=== PATIENT | female | born 1985 | race Caucasian/White ===

== ENCOUNTER 2019-04-04 15:11 | Emergency (ER) | payer OTHER, SELFPAY ==
[2019-04-04 15:34] VITALS: BP 134/78; PULSE 91; RESP 22; TEMP 37.3; O2SAT 99
[2019-04-04 15:55] LABS: Add Manual Diff / Slide Review NO; Basophils Absolute Auto 0 /uL (0-100); Basophils Percent Auto 0.3 % (0-2); Eosinophils Absolute Auto 0 /uL (0-450); Eosinophils Percent Auto 0.2 % (2-4); Hematocrit 42.6 % (36-46); Hemoglobin 14.2 g/dL (12.0-16.0); Lymphocytes Absolute Auto 2100 /uL (1100-4500); Lymphocytes Percent Auto 31.2 % (25-40); Mean Corpuscular HGB Conc 33.4 % (30-36); Mean Corpuscular Hemoglobin 28.9 PG (26-34); Mean Corpuscular Volume 86.6 fL (80-100); Monocytes Absolute Auto 400 /uL (0-900); Monocytes Percent Auto 6.2 % (3-14); Neutrophils Absolute Auto 4100 /uL (1500-7000); Neutrophils Percent Auto 62.1 % (50-75); Platelet Count 232 X10^3/uL (150-400); Red Blood Cell Count 4.91 X10^6/uL (4.0-5.2); Red Cell Distribution Width 12.8 % (11.6-14.8); White Blood Cell Count 6.6 X10^3/uL (4.5-11.0)
[2019-04-04 16:04] LABS: Acetaminophen < 10 ug/mL (10-30); Alanine Aminotransferase 21 IU/L (9-52); Albumin 4.7 g/dL (3.5-5.0); Albumin Globulin Ratio 1.6 (1.0-2.8); Alkaline Phosphatase 64 U/L (38-126); Aspartate Aminotransferase 22 IU/L (14-36); BUN Creatinine Ratio 15.7 (6-22); Bilirubin Total 0.6 mg/dL (0.2-1.3); Blood Urea Nitrogen 11 mg/dL (7-17); Calcium 9.3 mg/dL (8.4-10.2); Carbon Dioxide 25 mmol/L (22-32); Chloride 105 mmol/L (98-107); Estimated Glomerular Filt Rate > 60.0 mL/min (>60); Ethanol (ETOH) < 10 mg/dL; Glucose 82 mg/dL (70-100); HEMOLYSIS < 15 (0-50); Potassium 3.8 mmol/L (3.4-5.1); Salicylate < 1.0 mg/dL (<20); Sodium 141 mmol/L (137-145); Total Protein 7.7 g/dL (6.3-8.2)
[2019-04-04 16:27] LABS: Urine Amphetamines Negative (Negative); Urine Barbiturates Negative (Negative); Urine Benzodiazepines Negative (Negative); Urine Cocaine Negative (Negative); Urine MDMA Negative (Negative); Urine Methadone Negative (Negative); Urine Methamphetamines Negative (Negative); Urine Morphine/Opi cutoff 2000 Negative (Negative); Urine Oxycodone Negative (Negative); Urine Phencyclidine Negative (Negative); Urine Tetrahydrocannabinol Negative (Negative); Urine Tricyclic Antidepressant Negative (Negative)
[2019-04-04] MEDS: LORazepam 0.5 MG TABLET 1 MG PO ×2 (16:28→20:40)
[2019-04-04 16:47] VITALS: BP 108/67; PULSE 83; RESP 17; O2SAT 99
[2019-04-04 16:53] LABS: Thyroid Stimulating Hormone 1.45 uIU/mL (0.47-4.68)
--- NOTE | 2019-04-04 17:08 | ED.PSYCH ---
HPI - Psych <KYA Armstrong-BC - Last Filed: 04/04/19 21:12> General Chief Complaint: Psychiatric Symptoms Stated Complaint: suicidal ideation with a plan Time Seen by Provider: 04/04/19 15:38 Source: patient Mode of arrival: ambulatory Limitations: no limitations History of Present Illness HPI Narrative: The patient is a 34-year-old female who presents with her counselor with a chief complaint of suicidal ideations. She states that she has had depression and suicidal ideations for the past 2 months, but lately she has become ?dark? and increasingly suicidal. She has a plan to jump off of [place]. She has other plans to stop eating, and ?waste away.She states that she has been a difficult marriage, and her ?won't let me divorce him.She denies any homicidal ideations. She is willing to contract for safety in the emergency department. She denies any hallucinations, drugs alcohol marijuana or illicits substance use. She states she is unable to sleep, she has decreased appetite, and she feels hopeless. She states she does not have hope for her future. She states that ?it is all too much.? She called her counselor this morning, who is Maine Wagner from [facility]. She states that she is unable to wait for counseling appointment next week, and needed help immediately. The patient or cyst several active plans, and is very teary on interview. Related Data Home Medications Medication Instructions Recorded Confirmed No Known Home Medications 04/04/19 04/04/19 Allergies Allergy/AdvReac Type Severity Reaction Status Date / Time alcohol Allergy Verified 04/04/19 15:25 ketorolac [From Toradol] Allergy Hives Verified 04/04/19 15:25 Review of Systems <KYA Armstrong-BC - Last Filed: 04/04/19 21:12> Review of Systems GENERAL: Denies chills, fatigue, malaise, fever, sweats. HEENT: Denies sinus pain, ear pain, sore throat, difficulty swallowing, dizziness. RESPIRATORY: Denies dyspnea, cough, wheezing, hemoptysis, sputum. CARDIOVASCULAR: Denies chest pain, palpitations, orthopnea, edema, GASTROINTESTINAL: Denies nausea, vomiting, abdominal pain, diarrhea, constipation, melena. : Denies dysuria, frequency, incontinence, hematuria, urinary retention. MUSCULOSKELETAL: denies weakness, joint pain, or bony pain SKIN: Denies rash, skin lesions, or other NEUROLOGIC: Denies weakness, headache, numbness, change in speech, confusion, seizures, incoordination. PSYCHIATRIC: See HPI 12 point review of systems is negative except for those stated above PFSH <DARLIN Armstrong - Last Filed: 04/04/19 21:12> Social History Smoking Status: Never smoker Social History Smoking Status: Never smoker Exam <DARLIN Armstrong - Last Filed: 04/04/19 21:12> Narrative Exam Narrative: GENERAL: This is a well-nourished, well-developed patient, anxious and crying HEAD: Atraumatic. Normocephalic. No temporal or scalp tenderness. EYES: Pupils equal round and reactive. Extraocular motions intact. No scleral icterus. No injection or drainage. ENT: Nose without bleeding, purulent drainage or septal hematoma. Throat without erythema, tonsillar hypertrophy or exudate. Uvula midline. Airway patent. NECK: Trachea midline. No JVD or lymphadenopathy. Supple, nontender, no meningeal signs. CARDIOVASCULAR: Regular rate and rhythm RESPIRATORY: Clear to auscultation. Breath sounds equal bilaterally. No wheezes, rales, or rhonchi. No cough. No increased respiratory effort. No accessory muscle use. GASTROINTESTINAL: Abdomen soft, non-tender, nondistended. No hepato-splenomegaly, or palpable masses. No guarding. EXTREMITIES: No clubbing, cyanosis, or edema. No joint tenderness, effusion, or edema noted. BACK: Nontender without deformity or crepitance. No flank tenderness. NEURO: AOx3. SKIN: No rash or erythema. psych: Denies any homicidal ideations, denies any homicidal plan, endorses suicidal ideations with suicidal plan. Crying, anxious. Initial Vital Signs Initial Vital Signs: Vital Signs Temperature 99.1 F 04/04/19 15:34 Pulse Rate 91 H 04/04/19 15:34 Respiratory Rate 22 04/04/19 15:34 Blood Pressure 134/78 04/04/19 15:34 Pulse Oximetry 99 04/04/19 15:34 <Lavon Benitez DO - Last Filed: 04/05/19 06:15> Initial Vital Signs Initial Vital Signs: Vital Signs Temperature 99.1 F 04/04/19 15:34 Pulse Rate 91 H 04/04/19 15:34 Respiratory Rate 22 04/04/19 15:34 Blood Pressure 134/78 04/04/19 15:34 Pulse Oximetry 99 04/04/19 15:34 Course <DARLIN Armstrong - Last Filed: 04/04/19 21:12> Orders Ordered: ED Orders 04/04/19 21:30 Consult to Heat Transfer Technician Stat Discontinued Medications Lorazepam (Ativan) 1 mg PO NOW ONE Stop: 04/04/19 16:19 Last Admin: 04/04/19 16:28 Dose: 1 mg Lorazepam (Ativan) 1 mg PO NOW ONE Stop: 04/04/19 20:17 Last Admin: 04/04/19 20:40 Dose: 1 mg Vital Signs - 8 hr 04/04/19 22:59 04/05/19 02:25 04/05/19 04:20 Temperature 98.1 F Pulse Rate 66 70 75 Respiratory Rate 16 16 17 Blood Pressure [Right Arm] 89/60 L 87/58 L Pulse Oximetry 95 <Lavon Benitez DO - Last Filed: 04/05/19 06:15> Orders Ordered: ED Orders 04/04/19 21:30 Consult to Heat Transfer Technician Stat Discontinued Medications Lorazepam (Ativan) 1 mg PO NOW ONE Stop: 04/04/19 16:19 Last Admin: 04/04/19 16:28 Dose: 1 mg Lorazepam (Ativan) 1 mg PO NOW ONE Stop: 04/04/19 20:17 Last Admin: 04/04/19 20:40 Dose: 1 mg Vital Signs - 8 hr 04/04/19 22:59 04/05/19 02:25 04/05/19 04:20 Temperature 98.1 F Pulse Rate 66 70 75 Respiratory Rate 16 16 17 Blood Pressure [Right Arm] 89/60 L 87/58 L Pulse Oximetry 95 MDM - Psych <DARLIN Armstrong - Last Filed: 04/04/19 21:12> Lab Data Result diagrams: 04/04/19 15:47 04/04/19 15:47 Lab Results 04/04/19 04/04/19 04/04/19 Range/Units 15:47 15:47 15:47 WBC 6.6 (4.5-11.0) X10^3/uL RBC 4.91 (4.0-5.2) X10^6/uL Hgb 14.2 (12.0-16.0) g/dL Hct 42.6 (36-46) % MCV 86.6 (80-100) fL MCH 28.9 (26-34) PG MCHC 33.4 (30-36) % RDW 12.8 (11.6-14.8) % Plt Count 232 (150-400) X10^3/uL Neut % (Auto) 62.1 (50-75) % Lymph % (Auto) 31.2 (25-40) % Dewitt % (Auto) 6.2 (3-14) % Eos % (Auto) 0.2 L (2-4) % Baso % (Auto) 0.3 (0-2) % Neut # (Auto) 4100 (4326-0258) /uL Lymph # (Auto) 2100 (3349-1129) /uL Dewitt # (Auto) 400 (0-900) /uL Eos # (Auto) 0 (0-450) /uL Baso # (Auto) 0 (0-100) /uL Sodium 141 (137-145) mmol/L Potassium 3.8 (3.4-5.1) mmol/L Chloride 105 (98-107) mmol/L Carbon Dioxide 25 (22-32) mmol/L BUN 11 (7-17) mg/dL Creatinine 0.70 (0.52-1.04) mg/dL Estimated GFR > 60.0 (>60) mL/min BUN/Creatinine Ratio 15.7 (6-22) Glucose 82 (70-100) mg/dL Calcium 9.3 (8.4-10.2) mg/dL Total Bilirubin 0.6 (0.2-1.3) mg/dL AST 22 (14-36) IU/L ALT 21 (9-52) IU/L Alkaline Phosphatase 64 (38-126) U/L Total Protein 7.7 (6.3-8.2) g/dL Albumin 4.7 (3.5-5.0) g/dL Globulin 3.0 (1.7-4.1) g/dL Albumin/Globulin Ratio 1.6 (1.0-2.8) TSH 1.45 (0.47-4.68) uIU/mL Salicylates < 1.0 (<20) mg/dL Urine Opiates Screen (Negative) Ur Oxycodone Screen (Negative) Urine Methadone Screen (Negative) Acetaminophen < 10 L (10-30) ug/mL Ur Barbiturates Screen (Negative) U Tricyclic Antidepress (Negative) Ur Phencyclidine Scrn (Negative) Ur Amphetamines Screen (Negative) U Methamphetamines Scrn (Negative) Ur MDMA Scrn (Ecstasy) (Negative) U Benzodiazepines Scrn (Negative) Urine Cocaine Screen (Negative) U Marijuana (THC) Screen (Negative) Ethyl Alcohol < 10 mg/dL 04/04/19 Range/Units 16:05 WBC (4.5-11.0) X10^3/uL RBC (4.0-5.2) X10^6/uL Hgb (12.0-16.0) g/dL Hct (36-46) % MCV (80-100) fL MCH (26-34) PG MCHC (30-36) % RDW (11.6-14.8) % Plt Count (150-400) X10^3/uL Neut % (Auto) (50-75) % Lymph % (Auto) (25-40) % Dewitt % (Auto) (3-14) % Eos % (Auto) (2-4) % Baso % (Auto) (0-2) % Neut # (Auto) (5938-2611) /uL Lymph # (Auto) (6426-8122) /uL Dewitt # (Auto) (0-900) /uL Eos # (Auto) (0-450) /uL Baso # (Auto) (0-100) /uL Sodium (137-145) mmol/L Potassium (3.4-5.1) mmol/L Chloride (98-107) mmol/L Carbon Dioxide (22-32) mmol/L BUN (7-17) mg/dL Creatinine (0.52-1.04) mg/dL Estimated GFR (>60) mL/min BUN/Creatinine Ratio (6-22) Glucose (70-100) mg/dL Calcium (8.4-10.2) mg/dL Total Bilirubin (0.2-1.3) mg/dL AST (14-36) IU/L ALT (9-52) IU/L Alkaline Phosphatase (38-126) U/L Total Protein (6.3-8.2) g/dL Albumin (3.5-5.0) g/dL Globulin (1.7-4.1) g/dL Albumin/Globulin Ratio (1.0-2.8) TSH (0.47-4.68) uIU/mL Salicylates (<20) mg/dL Urine Opiates Screen Negative (Negative) Ur Oxycodone Screen Negative (Negative) Urine Methadone Screen Negative (Negative) Acetaminophen (10-30) ug/mL Ur Barbiturates Screen Negative (Negative) U Tricyclic Antidepress Negative (Negative) Ur Phencyclidine Scrn Negative (Negative) Ur Amphetamines Screen Negative (Negative) U Methamphetamines Scrn Negative (Negative) Ur MDMA Scrn (Ecstasy) Negative (Negative) U Benzodiazepines Scrn Negative (Negative) Urine Cocaine Screen Negative (Negative) U Marijuana (THC) Screen Negative (Negative) Ethyl Alcohol mg/dL Urine Dip Bedside Urine Glucose Negative Bedside Urine Bilirubin - Negative Bedside Urine Ketone - Negative Urine Specific Fraser 1.015 Bedside Urine Occult Blood - Negative Bedside Urine pH 6.0 Bedside Urine Protein - Negative Bedside Urine Urobilinogen - Negative Bedside Urine Nitrite - Negative Bedside Urine Leukocytes - Negative Esterase MDM Narrative Medical decision making narrative: The patient is a 34-year-old female who presents with suicidal ideations and plan. Given her presentation, I am concerned about the fact that she has a plan, and ability to carry out the plan. She is under great emotional distress at this point given her trouble marriage, the recent her pet, and increased stress at home. Her hopelessness, decreased appetite and inability to sleep are concerning. The she was placed under suicidal precautions while psychiatric clearance was obtained. She was given Ativan in the emergency department to help decrease her anxiety. Her counselor remained at her bedside. The patient does want to help, making her voluntary. Voluntary bed search was commenced. Unfortunately [facility] would not accept the patient due to her insurance. There are no psychiatric female beds at [facility] in [place], and paperwork was faxed to [facility] at 6:00 p.m.. At 9:00 p.m., the patient has paperwork with soon to be reviewed. Also no [facility] at [place], [facility], or [facility]. Patient signed out to Dr Benitez at 21:15, waiting to hear back from [facility]. Patient has been on suicide precautions, with sitter, cooperative and room. Ativan ordered for anxiety to help sleep. <Lavon Benitez, DO - Last Filed: 04/05/19 06:15> Lab Data Lab Results 04/04/19 04/04/19 04/04/19 Range/Units 15:47 15:47 15:47 WBC 6.6 (4.5-11.0) X10^3/uL RBC 4.91 (4.0-5.2) X10^6/uL Hgb 14.2 (12.0-16.0) g/dL Hct 42.6 (36-46) % MCV 86.6 (80-100) fL MCH 28.9 (26-34) PG MCHC 33.4 (30-36) % RDW 12.8 (11.6-14.8) % Plt Count 232 (150-400) X10^3/uL Neut % (Auto) 62.1 (50-75) % Lymph % (Auto) 31.2 (25-40) % Dewitt % (Auto) 6.2 (3-14) % Eos % (Auto) 0.2 L (2-4) % Baso % (Auto) 0.3 (0-2) % Neut # (Auto) 4100 (5057-0386) /uL Lymph # (Auto) 2100 (1394-0322) /uL Dewitt # (Auto) 400 (0-900) /uL Eos # (Auto) 0 (0-450) /uL Baso # (Auto) 0 (0-100) /uL Sodium 141 (137-145) mmol/L Potassium 3.8 (3.4-5.1) mmol/L Chloride 105 (98-107) mmol/L Carbon Dioxide 25 (22-32) mmol/L BUN 11 (7-17) mg/dL Creatinine 0.70 (0.52-1.04) mg/dL Estimated GFR > 60.0 (>60) mL/min BUN/Creatinine Ratio 15.7 (6-22) Glucose 82 (70-100) mg/dL Calcium 9.3 (8.4-10.2) mg/dL Total Bilirubin 0.6 (0.2-1.3) mg/dL AST 22 (14-36) IU/L ALT 21 (9-52) IU/L Alkaline Phosphatase 64 (38-126) U/L Total Protein 7.7 (6.3-8.2) g/dL Albumin 4.7 (3.5-5.0) g/dL Globulin 3.0 (1.7-4.1) g/dL Albumin/Globulin Ratio 1.6 (1.0-2.8) TSH 1.45 (0.47-4.68) uIU/mL Salicylates < 1.0 (<20) mg/dL Urine Opiates Screen (Negative) Ur Oxycodone Screen (Negative) Urine Methadone Screen (Negative) Acetaminophen < 10 L (10-30) ug/mL Ur Barbiturates Screen (Negative) U Tricyclic Antidepress (Negative) Ur Phencyclidine Scrn (Negative) Ur Amphetamines Screen (Negative) U Methamphetamines Scrn (Negative) Ur MDMA Scrn (Ecstasy) (Negative) U Benzodiazepines Scrn (Negative) Urine Cocaine Screen (Negative) U Marijuana (THC) Screen (Negative) Ethyl Alcohol < 10 mg/dL 04/04/19 Range/Units 16:05 WBC (4.5-11.0) X10^3/uL RBC (4.0-5.2) X10^6/uL Hgb (12.0-16.0) g/dL Hct (36-46) % MCV (80-100) fL MCH (26-34) PG MCHC (30-36) % RDW (11.6-14.8) % Plt Count (150-400) X10^3/uL Neut % (Auto) (50-75) % Lymph % (Auto) (25-40) % Dewitt % (Auto) (3-14) % Eos % (Auto) (2-4) % Baso % (Auto) (0-2) % Neut # (Auto) (4650-4343) /uL Lymph # (Auto) (9889-0547) /uL Dewitt # (Auto) (0-900) /uL Eos # (Auto) (0-450) /uL Baso # (Auto) (0-100) /uL Sodium (137-145) mmol/L Potassium (3.4-5.1) mmol/L Chloride (98-107) mmol/L Carbon Dioxide (22-32) mmol/L BUN (7-17) mg/dL Creatinine (0.52-1.04) mg/dL Estimated GFR (>60) mL/min BUN/Creatinine Ratio (6-22) Glucose (70-100) mg/dL Calcium (8.4-10.2) mg/dL Total Bilirubin (0.2-1.3) mg/dL AST (14-36) IU/L ALT (9-52) IU/L Alkaline Phosphatase (38-126) U/L Total Protein (6.3-8.2) g/dL Albumin (3.5-5.0) g/dL Globulin (1.7-4.1) g/dL Albumin/Globulin Ratio (1.0-2.8) TSH (0.47-4.68) uIU/mL Salicylates (<20) mg/dL Urine Opiates Screen Negative (Negative) Ur Oxycodone Screen Negative (Negative) Urine Methadone Screen Negative (Negative) Acetaminophen (10-30) ug/mL Ur Barbiturates Screen Negative (Negative) U Tricyclic Antidepress Negative (Negative) Ur Phencyclidine Scrn Negative (Negative) Ur Amphetamines Screen Negative (Negative) U Methamphetamines Scrn Negative (Negative) Ur MDMA Scrn (Ecstasy) Negative (Negative) U Benzodiazepines Scrn Negative (Negative) Urine Cocaine Screen Negative (Negative) U Marijuana (THC) Screen Negative (Negative) Ethyl Alcohol mg/dL Urine Dip Bedside Urine Glucose Negative Bedside Urine Bilirubin - Negative Bedside Urine Ketone - Negative Urine Specific Fraser 1.015 Bedside Urine Occult Blood - Negative Bedside Urine pH 6.0 Bedside Urine Protein - Negative Bedside Urine Urobilinogen - Negative Bedside Urine Nitrite - Negative Bedside Urine Leukocytes - Negative Esterase MDM Narrative Medical decision making narrative: Received turned over from the initial day provider reviewed patient's history and physical. Patient has been accepted by Dr. Bridges at [facility] however they did require a 3 day pre authorization from the insurance before she could be transported. A social work consult has been placed to help with this. Patient has been stable overnight. She has remain medically cleared. She has been voluntary. Care turned over to day provider change of shift to disposition. Discharge Plan Departure Prescriptions: No Action No Known Home Medications RF: 0
--- NOTE | 2019-04-04 17:13 | ED_ITS ---
HPI - Psych <KYA Armstrong-BC - Last Filed: 04/04/19 21:12> General Chief Complaint: Psychiatric Symptoms Stated Complaint: suicidal ideation with a plan Time Seen by Provider: 04/04/19 15:38 Source: patient Mode of arrival: ambulatory Limitations: no limitations History of Present Illness HPI Narrative: The patient is a 34-year-old female who presents with her counselor with a chief complaint of suicidal ideations. She states that she has had depression and suicidal ideations for the past 2 months, but lately she has become ?dark? and increasingly suicidal. She has a plan to jump [place] of [place]. She has other plans to stop eating, and ?waste away.She states that she has been a difficult marriage, and her ?won't let me divorce him.She denies any homicidal ideations. She is willing to contract for safety in the emergency department. She denies any hallucinations, drugs alcohol marijuana or illicits substance use. She states she is unable to sleep, she has decreased appetite, and she feels hopeless. She states she does not have hope for her future. She states that ?it is all too much.? She called her counselor this morning, who is Maine Wagner from [facility]. She states that she is unable to wait for counseling appointment next week, and needed help immediately. The patient or cyst several active plans, and is very teary on interview. Related Data Home Medications Medication Instructions Recorded Confirmed No Known Home Medications 04/04/19 04/04/19 Allergies Allergy/AdvReac Type Severity Reaction Status Date / Time alcohol Allergy Verified 04/04/19 15:25 ketorolac [From Toradol] Allergy Hives Verified 04/04/19 15:25 Review of Systems <KYA Armstrong-BC - Last Filed: 04/04/19 21:12> Review of Systems GENERAL: Denies chills, fatigue, malaise, fever, sweats. HEENT: Denies sinus pain, ear pain, sore throat, difficulty swallowing, dizziness. RESPIRATORY: Denies dyspnea, cough, wheezing, hemoptysis, sputum. CARDIOVASCULAR: Denies chest pain, palpitations, orthopnea, edema, GASTROINTESTINAL: Denies nausea, vomiting, abdominal pain, diarrhea, constipation, melena. : Denies dysuria, frequency, incontinence, hematuria, urinary retention. MUSCULOSKELETAL: denies weakness, joint pain, or bony pain SKIN: Denies rash, skin lesions, or other NEUROLOGIC: Denies weakness, headache, numbness, change in speech, confusion, seizures, incoordination. PSYCHIATRIC: See HPI 12 point review of systems is negative except for those stated above PFSH <DARLIN Armstrong - Last Filed: 04/04/19 21:12> Social History Smoking Status: Never smoker Social History Smoking Status: Never smoker Exam <DARLIN Armstrong - Last Filed: 04/04/19 21:12> Narrative Exam Narrative: GENERAL: This is a well-nourished, well-developed patient, anxious and crying HEAD: Atraumatic. Normocephalic. No temporal or scalp tenderness. EYES: Pupils equal round and reactive. Extraocular motions intact. No scleral icterus. No injection or drainage. ENT: Nose without bleeding, purulent drainage or septal hematoma. Throat without erythema, tonsillar hypertrophy or exudate. Uvula midline. Airway patent. NECK: Trachea midline. No JVD or lymphadenopathy. Supple, nontender, no meningeal signs. CARDIOVASCULAR: Regular rate and rhythm RESPIRATORY: Clear to auscultation. Breath sounds equal bilaterally. No wheezes, rales, or rhonchi. No cough. No increased respiratory effort. No accessory muscle use. GASTROINTESTINAL: Abdomen soft, non-tender, nondistended. No hepato- splenomegaly, or palpable masses. No guarding. EXTREMITIES: No clubbing, cyanosis, or edema. No joint tenderness, effusion, or edema noted. BACK: Nontender without deformity or crepitance. No flank tenderness. NEURO: AOx3. SKIN: No rash or erythema. psych: Denies any homicidal ideations, denies any homicidal plan, endorses suicidal ideations with suicidal plan. Crying, anxious. Initial Vital Signs Initial Vital Signs: Vital Signs Temperature 99.1 F 04/04/19 15:34 Pulse Rate 91 H 04/04/19 15:34 Respiratory Rate 22 04/04/19 15:34 Blood Pressure 134/78 04/04/19 15:34 Pulse Oximetry 99 04/04/19 15:34 <Lavon Benitez DO - Last Filed: 04/05/19 06:15> Initial Vital Signs Initial Vital Signs: Vital Signs Temperature 99.1 F 04/04/19 15:34 Pulse Rate 91 H 04/04/19 15:34 Respiratory Rate 22 04/04/19 15:34 Blood Pressure 134/78 04/04/19 15:34 Pulse Oximetry 99 04/04/19 15:34 Course <DARLIN Armstrong - Last Filed: 04/04/19 21:12> Orders Ordered: ED Orders 04/04/19 21:30 Consult to Director Information Stat Discontinued Medications Lorazepam (Ativan) 1 mg PO NOW ONE Stop: 04/04/19 16:19 Last Admin: 04/04/19 16:28 Dose: 1 mg Lorazepam (Ativan) 1 mg PO NOW ONE Stop: 04/04/19 20:17 Last Admin: 04/04/19 20:40 Dose: 1 mg Vital Signs - 8 hr 04/04/19 22:59 04/05/19 02:25 04/05/19 04:20 Temperature 98.1 F Pulse Rate 66 70 75 Respiratory Rate 16 16 17 Blood Pressure [Right Arm] 89/60 L 87/58 L Pulse Oximetry 95 <Lavon Benitez DO - Last Filed: 04/05/19 06:15> Orders Ordered: ED Orders 04/04/19 21:30 Consult to Director Information Stat Discontinued Medications Lorazepam (Ativan) 1 mg PO NOW ONE Stop: 04/04/19 16:19 Last Admin: 04/04/19 16:28 Dose: 1 mg Lorazepam (Ativan) 1 mg PO NOW ONE Stop: 04/04/19 20:17 Last Admin: 04/04/19 20:40 Dose: 1 mg Vital Signs - 8 hr 04/04/19 22:59 04/05/19 02:25 04/05/19 04:20 Temperature 98.1 F Pulse Rate 66 70 75 Respiratory Rate 16 16 17 Blood Pressure [Right Arm] 89/60 L 87/58 L Pulse Oximetry 95 MDM - Psych <DARLIN Armstrong - Last Filed: 04/04/19 21:12> Lab Data Result diagrams: 04/04/19 15:47 04/04/19 15:47 Lab Results 04/04/19 04/04/19 04/04/19 Range/Units 15:47 15:47 15:47 WBC 6.6 (4.5-11.0) X10^3/uL RBC 4.91 (4.0-5.2) X10^6/uL Hgb 14.2 (12.0-16.0) g/dL Hct 42.6 (36-46) % MCV 86.6 (80-100) fL MCH 28.9 (26-34) PG MCHC 33.4 (30-36) % RDW 12.8 (11.6-14.8) % Plt Count 232 (150-400) X10^3/uL Neut % (Auto) 62.1 (50-75) % Lymph % (Auto) 31.2 (25-40) % [place] % (Auto) 6.2 (3-14) % Eos % (Auto) 0.2 L (2-4) % Baso % (Auto) 0.3 (0-2) % Neut # (Auto) 4100 (2087-0773) /uL Lymph # (Auto) 2100 (1696-4607) /uL [place] # (Auto) 400 (0-900) /uL Eos # (Auto) 0 (0-450) /uL Baso # (Auto) 0 (0-100) /uL Sodium 141 (137-145) mmol/L Potassium 3.8 (3.4-5.1) mmol/L Chloride 105 (98-107) mmol/L Carbon Dioxide 25 (22-32) mmol/L BUN 11 (7-17) mg/dL Creatinine 0.70 (0.52-1.04) mg/dL Estimated GFR > 60.0 (>60) mL/min BUN/Creatinine Ratio 15.7 (6-22) Glucose 82 (70-100) mg/dL Calcium 9.3 (8.4-10.2) mg/dL Total Bilirubin 0.6 (0.2-1.3) mg/dL AST 22 (14-36) IU/L ALT 21 (9-52) IU/L Alkaline Phosphatase 64 (38-126) U/L Total Protein 7.7 (6.3-8.2) g/dL Albumin 4.7 (3.5-5.0) g/dL Globulin 3.0 (1.7-4.1) g/dL Albumin/Globulin Ratio 1.6 (1.0-2.8) TSH 1.45 (0.47-4.68) uIU/mL Salicylates < 1.0 (<20) mg/dL Urine Opiates Screen (Negative) Ur Oxycodone Screen (Negative) Urine Methadone Screen (Negative) Acetaminophen < 10 L (10-30) ug/mL Ur Barbiturates Screen (Negative) U Tricyclic Antidepress (Negative) Ur Phencyclidine Scrn (Negative) Ur Amphetamines Screen (Negative) U Methamphetamines Scrn (Negative) Ur MDMA Scrn (Ecstasy) (Negative) U Benzodiazepines Scrn (Negative) Urine Cocaine Screen (Negative) U Marijuana (THC) Screen (Negative) Ethyl Alcohol < 10 mg/dL 04/04/19 Range/Units 16:05 WBC (4.5-11.0) X10^3/uL RBC (4.0-5.2) X10^6/uL Hgb (12.0-16.0) g/dL Hct (36-46) % MCV (80-100) fL MCH (26-34) PG MCHC (30-36) % RDW (11.6-14.8) % Plt Count (150-400) X10^3/uL Neut % (Auto) (50-75) % Lymph % (Auto) (25-40) % [place] % (Auto) (3-14) % Eos % (Auto) (2-4) % Baso % (Auto) (0-2) % Neut # (Auto) (7340-2947) /uL Lymph # (Auto) (9685-8821) /uL [place] # (Auto) (0-900) /uL Eos # (Auto) (0-450) /uL Baso # (Auto) (0-100) /uL Sodium (137-145) mmol/L Potassium (3.4-5.1) mmol/L Chloride (98-107) mmol/L Carbon Dioxide (22-32) mmol/L BUN (7-17) mg/dL Creatinine (0.52-1.04) mg/dL Estimated GFR (>60) mL/min BUN/Creatinine Ratio (6-22) Glucose (70-100) mg/dL Calcium (8.4-10.2) mg/dL Total Bilirubin (0.2-1.3) mg/dL AST (14-36) IU/L ALT (9-52) IU/L Alkaline Phosphatase (38-126) U/L Total Protein (6.3-8.2) g/dL Albumin (3.5-5.0) g/dL Globulin (1.7-4.1) g/dL Albumin/Globulin Ratio (1.0-2.8) TSH (0.47-4.68) uIU/mL Salicylates (<20) mg/dL Urine Opiates Screen Negative (Negative) Ur Oxycodone Screen Negative (Negative) Urine Methadone Screen Negative (Negative) Acetaminophen (10-30) ug/mL Ur Barbiturates Screen Negative (Negative) U Tricyclic Antidepress Negative (Negative) Ur Phencyclidine Scrn Negative (Negative) Ur Amphetamines Screen Negative (Negative) U Methamphetamines Scrn Negative (Negative) Ur MDMA Scrn (Ecstasy) Negative (Negative) U Benzodiazepines Scrn Negative (Negative) Urine Cocaine Screen Negative (Negative) U Marijuana (THC) Screen Negative (Negative) Ethyl Alcohol mg/dL Urine Dip Bedside Urine Glucose Negative Bedside Urine Bilirubin - Negative Bedside Urine Ketone - Negative Urine Specific [place] 1.015 Bedside Urine Occult Blood - Negative Bedside Urine pH 6.0 Bedside Urine Protein - Negative Bedside Urine Urobilinogen - Negative Bedside Urine Nitrite - Negative Bedside Urine Leukocytes - Negative Esterase MDM Narrative Medical decision making narrative: The patient is a 34-year-old female who presents with suicidal ideations and plan. Given her presentation, I am co ncerned about the fact that she has a plan, and ability to carry out the plan. She is under great emotional distress at this point given her trouble marriage, the recent her pet, and increased stress at home. Her hopelessness, decreased appetite and inability to sleep are concerning. The she was placed under suicidal precautions while psychiatric clearance was obtained. She was given Ativan in the emergency department to help decrease her anxiety. Her counselor remained at her bedside. The patient does want to help, making her voluntary. Voluntary bed search was commenced. Unfortunately [facility] would not accept the patient due to her insurance. There are no psychiatric female beds at [facility] in [place], and paperwork was faxed to [facility] at 6:00 p.m.. At 9:00 p.m., the patient has paperwork with soon to be reviewed. Also [facility] beds at [place], or [facility]. Patient signed out to Dr Benitez at 21:15, waiting to hear back from [facility]. Patient has been on suicide precautions, with sitter, cooperative and room. Ativan ordered for anxiety to help sleep. <Lavon Benitez, DO - Last Filed: 04/05/19 06:15> Lab Data Lab Results 04/04/19 04/04/19 04/04/19 Range/Units 15:47 15:47 15:47 WBC 6.6 (4.5-11.0) X10^3/uL RBC 4.91 (4.0-5.2) X10^6/uL Hgb 14.2 (12.0-16.0) g/dL Hct 42.6 (36-46) % MCV 86.6 (80-100) fL MCH 28.9 (26-34) PG MCHC 33.4 (30-36) % RDW 12.8 (11.6-14.8) % Plt Count 232 (150-400) X10^3/uL Neut % (Auto) 62.1 (50-75) % Lymph % (Auto) 31.2 (25-40) % [place] % (Auto) 6.2 (3-14) % Eos % (Auto) 0.2 L (2-4) % Baso % (Auto) 0.3 (0-2) % Neut # (Auto) 4100 (9997-9501) /uL Lymph # (Auto) 2100 (6270-0533) /uL [place] # (Auto) 400 (0-900) /uL Eos # (Auto) 0 (0-450) /uL Baso # (Auto) 0 (0-100) /uL Sodium 141 (137-145) mmol/L Potassium 3.8 (3.4-5.1) mmol/L Chloride 105 (98-107) mmol/L Carbon Dioxide 25 (22-32) mmol/L BUN 11 (7-17) mg/dL Creatinine 0.70 (0.52-1.04) mg/dL Estimated GFR > 60.0 (>60) mL/min BUN/Creatinine Ratio 15.7 (6-22) Glucose 82 (70-100) mg/dL Calcium 9.3 (8.4-10.2) mg/dL Total Bilirubin 0.6 (0.2-1.3) mg/dL AST 22 (14-36) IU/L ALT 21 (9-52) IU/L Alkaline Phosphatase 64 (38-126) U/L Total Protein 7.7 (6.3-8.2) g/dL Albumin 4.7 (3.5-5.0) g/dL Globulin 3.0 (1.7-4.1) g/dL Albumin/Globulin Ratio 1.6 (1.0-2.8) TSH 1.45 (0.47-4.68) uIU/mL Salicylates < 1.0 (<20) mg/dL Urine Opiates Screen (Negative) Ur Oxycodone Screen (Negative) Urine Methadone Screen (Negative) Acetaminophen < 10 L (10-30) ug/mL Ur Barbiturates Screen (Negative) U Tricyclic Antidepress (Negative) Ur Phencyclidine Scrn (Negative) Ur Amphetamines Screen (Negative) U Methamphetamines Scrn (Negative) Ur MDMA Scrn (Ecstasy) (Negative) U Benzodiazepines Scrn (Negative) Urine Cocaine Screen (Negative) U Marijuana (THC) Screen (Negative) Ethyl Alcohol < 10 mg/dL 04/04/19 Range/Units 16:05 WBC (4.5-11.0) X10^3/uL RBC (4.0-5.2) X10^6/uL Hgb (12.0-16.0) g/dL Hct (36-46) % MCV (80-100) fL MCH (26-34) PG MCHC (30-36) % RDW (11.6-14.8) % Plt Count (150-400) X10^3/uL Neut % (Auto) (50-75) % Lymph % (Auto) (25-40) % [place] % (Auto) (3-14) % Eos % (Auto) (2-4) % Baso % (Auto) (0-2) % Neut # (Auto) (0746-8332) /uL Lymph # (Auto) (2851-0206) /uL [place] # (Auto) (0-900) /uL Eos # (Auto) (0-450) /uL Baso # (Auto) (0-100) /uL Sodium (137-145) mmol/L Potassium (3.4-5.1) mmol/L Chloride (98-107) mmol/L Carbon Dioxide (22-32) mmol/L BUN (7-17) mg/dL Creatinine (0.52-1.04) mg/dL Estimated GFR (>60) mL/min BUN/Creatinine Ratio (6-22) Glucose (70-100) mg/dL Calcium (8.4-10.2) mg/dL Total Bilirubin (0.2-1.3) mg/dL AST (14-36) IU/L ALT (9-52) IU/L Alkaline Phosphatase (38-126) U/L Total Protein (6.3-8.2) g/dL Albumin (3.5-5.0) g/dL Globulin (1.7-4.1) g/dL Albumin/Globulin Ratio (1.0-2.8) TSH (0.47-4.68) uIU/mL Salicylates (<20) mg/dL Urine Opiates Screen Negative (Negative) Ur Oxycodone Screen Negative (Negative) Urine Methadone Screen Negative (Negative) Acetaminophen (10-30) ug/mL Ur Barbiturates Screen Negative (Negative) U Tricyclic Antidepress Negative (Negative) Ur Phencyclidine Scrn Negative (Negative) Ur Amphetamines Screen Negative (Negative) U Methamphetamines Scrn Negative (Negative) Ur MDMA Scrn (Ecstasy) Negative (Negative) U Benzodiazepines Scrn Negative (Negative) Urine Cocaine Screen Negative (Negative) U Marijuana (THC) Screen Negative (Negative) Ethyl Alcohol mg/dL Urine Dip Bedside Urine Glucose Negative Bedside Urine Bilirubin - Negative Bedside Urine Ketone - Negative Urine Specific [place] 1.015 Bedside Urine Occult Blood - Negative Bedside Urine pH 6.0 Bedside Urine Protein - Negative Bedside Urine Urobilinogen - Negative Bedside Urine Nitrite - Negative Bedside Urine Leukocytes - Negative Esterase MDM Narrative Medical decision making narrative: Received turned over from the initial day provider reviewed patient's history and physical. Patient has been accepted by Dr. Bridges at [facility] however they did require a 3 day pre authorization from the insurance before she could be transported. A social work consult has been placed to help with this. Patient has been stable overnight. She has remain medically cleared. She has been voluntary. Care turned over to day provider change of shift to disposition. Discharge Plan Departure Prescriptions: No Action No Known Home Medications RF: 0
--- NOTE | 2019-04-04 18:17 | PC.NURSE ---
Calls made to [facility] and now to [facility] for placement. [facility] states they do not contract with that insurance so [facility] is faxed. 1:1 with sitter although is voluntary. Has made no attempt at self harm or to leave. Wants help. States meds helped.
--- NOTE | 2019-04-04 20:14 | PC.NURSE ---
spoke with luz at 2015, they have not made a decision yet and will get back within an hour or so
--- NOTE | 2019-04-04 21:00 | PC.NURSE ---
Called: [facility]: No beds [place]: No beds [facility]: No beds [facility]: No beds [facility] ([phone]) call back @ 2300 to check bed availability [facility]: ([phone]) Calling back by 2200 w/ possible. [facility]: Only involuntary [facility]: No inpatient.
[2019-04-04 21:15] VITALS: BP 95/69; PULSE 78; TEMP 36.3
--- NOTE | 2019-04-04 21:28 | PC.NURSE ---
Call back from Erin at [facility]: [phone]: Pt has been accepted under Dr. Bridges however they need a 3 day insurance approval from pt's health insurance. [facility] health [email or web address] which is currently closed and will not hope until the am. Erin made aware.
[2019-04-04 22:59] VITALS: BP 89/60; PULSE 66; RESP 16; TEMP 36.7
--- NOTE | 2019-04-04 23:17 | PC.NURSE ---
Patient is lying quietly in bed, I got her warm blankets and water. The door is open to haas.
[2019-04-05 02:25] VITALS: BP 87/58; PULSE 70; RESP 16
[2019-04-05 04:20] VITALS: PULSE 75; RESP 17; O2SAT 95
[2019-04-05 06:18] VITALS: BP 95/67; PULSE 52; RESP 16; TEMP 36.7; O2SAT 97
--- NOTE | 2019-04-05 07:24 | PC.NURSE ---
Arrived for shift, patient is sleeping, door is open, one side rail is up on bed.
--- NOTE | 2019-04-05 08:17 | PC.NURSE ---
Brought patient breakfast, adjusted HOB, brought cup of coffee. Patient is calm, although crying. RN and have both been in to talk with her.
--- NOTE | 2019-04-05 08:32 | PC.NURSE ---
Patient is going to take a shower under supervision by a female staff member.
--- NOTE | 2019-04-05 09:12 | PC.NURSE ---
Patient finished her shower and now back in room
[2019-04-05] MEDS: LORazepam 0.5 MG TABLET 1 MG PO (09:17)
--- NOTE | 2019-04-05 09:17 | PC.NURSE ---
Patient offered shower and a change of scrubs and socks....changed out the bedding for the patient and gave pt a glass of water
--- NOTE | 2019-04-05 10:15 | PC.NURSE ---
Patient has been sitting comfortably on the bed using her cell phone. Has been very calm
--- NOTE | 2019-04-05 10:47 | PC.NURSE ---
Patient has been talking on her cell phone with , conversation has increased agitation.
--- NOTE | 2019-04-05 11:15 | PC.NURSE ---
Patient has been on her phone talking with her mother for the past several minutes. Has been calm
--- NOTE | 2019-04-05 12:22 | PC.NURSE ---
Patient is sitting while eating her lunch, called dietary to have a cola brought to her.
[2019-04-05 12:52] VITALS: BP 98/75; PULSE 76; RESP 16; TEMP 36.2
--- NOTE | 2019-04-05 13:33 | PC.NURSE ---
Patient has been sleeping comfortably and quietly.
--- NOTE | 2019-04-05 13:45 | PC.NURSE ---
Patient is still sleeping
--- NOTE | 2019-04-05 14:00 | PC.NURSE ---
Patient continues to sleep, quietly and comfortably
--- NOTE | 2019-04-05 14:32 | PC.NURSE ---
Care Management and patients have arrived.
--- NOTE | 2019-04-05 15:09 | PC.NURSE ---
Meeting with Care Management, and patient ended. Patient is calm.
--- NOTE | 2019-04-05 15:15 | PC.NURSE ---
Per Vandana EDEN, clothes and purse given to patient
--- NOTE | 2019-04-05 15:39 | CM.SWNOTE ---
Addendum entered by Julieth Phelps KAREY 04/05/19 16:29: To clarify: Discussed private payment at [facility] w/Tracey and Alexandr and both state this is not financially feasible for them. Original Note: Social Work Consult Note: This DIRECTOR AUDIENCE MARKETING requested to assist w/safe planning for this 34 yo who presents to the ER w/counselor after endorsing dark and demonic thoughts to include self harm by not eating and wasting away and having nightmares about jumping [place] [address]. [facility] and [facility] have bed availability today for pt's short stay for stabilization, though pt's [facility] coverage needs to be contacted to discuss coverage for MH benefits (?) Placed call to [facility] P# [phone], listened to automated recording for providers that stated [facility] is not an insurance, it is a cost sharing ministry. Members need to be billed directly as self pay and they can submit their claim to [facility] for assistance. Tracey does not have any alternative coverage, she has no insurance. Requested that Charley Callejas, admissions counselor, visit Tracey to screen for medicaid. Per Charley's response to this DIRECTOR AUDIENCE MARKETING, Tracey has a household income of $88,000 a year and will not qualify for Medicaid. The next period for open enrollment on the exchange is Aug 29 2019. Placed call to [facility], they have beds today, spoke w/ Reny in the billing dept. With no insurance Tracey would be responsible for $1,500 per day and a 7 day deposit would be required. [facility] would not consider Tracey if paying privately . Then had a lengthy conversation w/Tracey's spouse Alexandr P# [phone], w/Tracey's permission. Educated Alexandr about symptoms of severe depression and anxiety, Alexandr made comments like I'm starting to believe this is a real thing, he states Tracey has been dark lately and he doesn't know how to help, Alexandr feels any suggestion he makes is rejected by Tracey . Tracey and Alexandr have a 12 and 8 yo at home, Tracey works for the [employer] that her children attend. Alexandr works for a company called [email or web address]. This DIRECTOR AUDIENCE MARKETING requested that spouse Alexandr come to the ER for safety planning. Meanwhile, contacted Tracey's counselor Maine, and Maine suggested that Tracey could either come into her office in [place] between 9-12 tomorrow (if she would like to have a private session outside of [place]) or Maine could come to [facility], in a conference room, as they have been, to meet at 0930. Maine understands the cost of inpt treatment is too financially burdensome at this time, both Maine and this DIRECTOR AUDIENCE MARKETING agree Tracey is a good candidate for inpt MH stabilization, but this DIRECTOR AUDIENCE MARKETING will need to focus efforts on safety planning in the outpt setting and Maine feels she can help in this process by being available tomorrow and next week. Spoke w/Tracey alone this morning, then again w/spouse Alexandr this afternoon. Tracey is quite eloquent alone w/this DIRECTOR AUDIENCE MARKETING, stating her goals for herself as being school, financial indp. from spouse, she denies physical and sexual abuse from her , states we are manipulative towards each other. Tracey acts younger than her age and discusses life stressors as a teenager would, she admits to struggling w/anorexia for a long time. She states she has reacted well to the ativan given since being in the ER, she plans to continuing seeing counselor and plans to pay mccord for physician service at [facility]. With Alexandr in room, Tracey is defensive, angry and agitated. She goes from closing her eyes and being groggy to waking up and yelling. She will not commit to safety planning w/this DIRECTOR AUDIENCE MARKETING or spouse and gets frustrated about being in the ER when it hasn't helped me it's overwhelmed me. Tracey denies current thoughts of self harm and states she will go see Maine tomorrow and get a PCP through [facility] to discuss anti-depressants and ant-anxiety meds that may assist in helping her feel better. This DIRECTOR AUDIENCE MARKETING spoke w/ spouse Alexandr outside of Tracey's room for further reiteration about getting insurance, getting Tracey to outpt appts and encouraging compliance w/treatment course. Tracey is emotionally labile today and will benefit from trial of anti-psychotics and/or benzos (?) for MH stabilization, as long as she has professionals monitoring. Alexandr understands and hopes Tracey will find stability soon. Updated Dr Shyanne Christensen re: above. [facility] referral not made at this time, Tracey agrees to see her counselor tomorrow morning. KAREY Mendez
== END 2019-04-05 15:29 | disposition home or self-care (01) ==
PROVIDERS: Nurse Practitioner Family; Emergency Provider Emergency Medicine
DX: R45.851 Suicidal ideations (principal)
CPT/HCPCS: 36415; 80053; 80305; 80320; 80329; 81003; 84443; 85025; 99285; G0480